=== PATIENT | male | born 1945 | race Caucasian/White ===

== ENCOUNTER 2020-12-09 08:30 | Outpatient (RCR) | payer MEDICARE, BC | END 2021-03-09 | disposition home or self-care (01) | LOC: CARDREHAB → CARDLAB 08:31 | DX: Z48.812 Encounter for surgical aftercare following surgery on the circulatory system (principal); Z95.5 Presence of coronary angioplasty implant and graft; I21.9 Acute myocardial infarction, unspecified ==